=== PATIENT | female | born 1985 | race Caucasian/White ===

== ENCOUNTER 2018-07-10 12:18 | Inpatient (IN) | payer BC ==
[~2018-07-10] VITALS: Ht 175.3 cm; Wt 110.0 kg
[~2018-07-10 12:18] MED LIST: MOTRIN 600600 MG/TAB PO; PERCOCET 325 MG1 TA2 PO; PRENATAL1 TA1 PO
[2018-07-14] VITALS (58 sets, daily range): BP systolic 110–155; BP diastolic 59–88; PULSE 71–113; TEMP 98.1–98.4
[2018-07-14] MEDS ORDERED: VITAMIN C500 MG PO (07:33)
[2018-07-14] MEDS ORDERED: NATURAL IRON65 MG PO (07:33)
[2018-07-14] MEDS ORDERED: PRENATAL VITAMI1 TA3 PO (07:33)
[2018-07-14 09:50] LABS: BASO % 0.1 % (0.0-2.0); EOS % 0.4 % (0-4.0); GRAN # 5.8 (1.4-6.5); GRAN % 76.9 % (42.2-75.2); HEMATOCRIT 35.6 % (37.0-47.0); HEMOGLOBIN 11.7 g/dl (12.5-16.0); LYMPH # 1.1 (1.2-3.4); LYMPH % 14.9 % (20.0-51.0); MEAN CELL VOLUME 86 fl (80.0-100.0); MEAN CORPUSCULAR HEMOGLOBIN 28 pg (27.0-31.0); MEAN CORPUSCULAR HGB CONC 33 g/dl (33.0-37.0); MEAN PLATELET VOLUME 10.3 fl (7.4-10.4); MONO # 0.5 (0.1-0.6); MONO % 6.9 % (1.7-9.3); PLATELET COUNT 182 K/mm3 (130-400); RED BLOOD COUNT 4.12 M/mm3 (4.10-5.30)
[2018-07-15 00:45] VITALS: BP 123/63; PULSE 103; TEMP 98.7
[2018-07-15 04:54] VITALS: BP 146/83; PULSE 90; TEMP 97.9
[2018-07-15 07:42] VITALS: BP 145/80; PULSE 93; TEMP 98
[2018-07-15] MEDS ORDERED: IBU600 MG PO (13:26)
[2018-07-15 16:30] VITALS: BP 134/67; PULSE 80; TEMP 98.5
[2018-07-15 20:40] VITALS: BP 139/87; PULSE 90; TEMP 98.8
[2018-07-16 07:50] VITALS: BP 144/90; PULSE 73; TEMP 97.9
== END 2018-07-16 12:35 | disposition home or self-care (01) | DRG 807 ==
LOC: LDR 12:18 → OB 07-14 22:49
PROVIDERS: Obstetrics & Gynecology
PROC: 10E0XZZ Delivery of Products of Conception, External Approach (ICD-10-PCS; principal; 2018-07-14)
PROC: 10907ZC Drainage of Amniotic Fluid, Therapeutic from Products of Conception, Via Natural or Artificial Opening (ICD-10-PCS; 2018-07-14)
PROC: 3E033VJ Introduction of Other Hormone into Peripheral Vein, Percutaneous Approach (ICD-10-PCS; 2018-07-14)
DX: O48.0 Post-term pregnancy (principal); Z37.0 Single live birth; Z3A.40 40 weeks gestation of pregnancy; Z28.21 Immunization not carried out because of patient refusal; O13.5 Gestational [pregnancy-induced] hypertension without significant proteinuria, complicating the puerperium
CPT/HCPCS: J2590; J2795; J7120